=== PATIENT | male | born 1995 | race Caucasian/White ===

== ENCOUNTER 2018-02-23 19:36 | Emergency (ER) | payer OTHER ==
[~2018-02-23] VITALS: Ht 172.7 cm; Wt 54.4 kg
[2018-02-23] MEDS ORDERED: NAPROXEN500 MG PO (19:50)
[2018-02-23] MEDS ORDERED: ZANAFLEX2 M1 PO (20:26)
[2018-02-23] MEDS ORDERED: PREDNISONE10 MG PO (20:26)
[2018-02-23] MEDS ORDERED: GABAPENTIN100 MG PO (20:26)
[2018-02-23] MEDS ORDERED: INDOMETHACIN50 MG PO (20:26)
== END 2018-02-23 21:15 | disposition left against medical advice (07) ==
LOC: ED 19:36
DX: M54.16 Radiculopathy, lumbar region (principal); B35.3 Tinea pedis; L98.9 Disorder of the skin and subcutaneous tissue, unspecified; F32.9 Major depressive disorder, single episode, unspecified; F17.200 Nicotine dependence, unspecified, uncomplicated; Z79.899 Other long term (current) drug therapy
CPT/HCPCS: 96372; 99283; J1630; J1885; J7512

== ENCOUNTER 2019-04-04 11:05 | Emergency (ER) | payer OTHER ==
[~2019-04-04] VITALS: Ht 172.7 cm; Wt 55.9 kg
--- OUTSIDE RECORDS SUMMARY | ~2019-04-04 | XMS | Clinical Summary ---
Demographics + + + | Address | [address] | | | [place] [address] | + + + | Home Phone | | + + + | Preferred Language | Unknown | + + + | Marital Status | Single | + + + | Anabaptist Affiliation | Unknown | + + + | Race | Unknown | + + + | Ethnic Group | Unknown | + + + Author + + + | Author | [facility] | | | and [place] | + + + | Organization | [facility] | | | and [place] | + + + | Address | Unknown | + + + | Phone | Unavailable | + + + Support + + +---------+ + | Name | Relationship | Address | Phone | + + +---------+ + | Eriberto Mcfadden | ECON | Unknown | | + + +---------+ + Care Team Providers + +------+ + | Care Endoscopy Rn Name | Role | Phone | + +------+ + | Marky Huertas MD | PP | | + +------+ + Allergies No Known Allergies Medications + + + +---------+------+------+-------+ | Medication | Sig | Dispensed | Refills | Star | End | Statu | | | | | | t | Date | s | | | | | | Date | | | + + + +---------+------+------+-------+ | gabapentin | 1 tab PO nightly x 5 | 60 | 2 | 06/2 | | Activ | | (NEURONTIN) 300 mg | days, then increase | capsule | | 8/20 | | e | | capsule | to 1 tab PO BID x 5 | | | 18 | | | | | days. If continue | | | | | | | | to tolerate well, | | | | | | | | increase to 1 tab PO | | | | | | | | TID. | | | | | | + + + +---------+------+------+-------+ | meloxicam (MOBIC) | Take 1 tablet by | 30 | 2 | 05/25 | | Activ | | 15 mg tablet | mouth Daily as | tablet | | 7/20 | | e | | | needed for Pain. | | | 18 | | | + + + +---------+------+------+-------+ Active Problems + + + | Problem | Noted Date | + + + | Lumbar radiculopathy | 05/22/2018 | + + + | DDD (degenerative disc disease), lumbar | 05/22/2018 | + + + Family History + + + + + | Medical History | Relation | Name | Comments | + + + + + | No known problems | Mother | ERIBERTO | | | | | SUMMREFI | | | | | ELD | | + + + + + + + +--------+ + | Relation | Name | Status | Comments | + + +--------+ + | Mother | ERIBERTO | Alive | | | | SUMMREFIE | | | | | LD | | | + + +--------+ + Social History + +-------+ +--------+------+ | Tobacco Use | Types | Packs/Day | Years | Date | | | | | Used | | + +-------+ +--------+------+ | Never Smoker | | | | | + +-------+ +--------+------+ + +---+---+---+ | Smokeless Tobacco: | | | | | Never Used | | | | + +---+---+---+ + + +---------+ + | Alcohol Use | Drinks/We | oz/Week | Comments | | | ek | | | + + +---------+ + | Yes | | | | + + +---------+ + + + + | Sex Assigned at | Date Recorded | | | | + + + | Not on file | | + + + + + + + | Job Start Date | Occupation | Industry | + + + + | Not on file | Not on file | Not on file | + + + + + + + + | Travel History | Travel Start | Travel End | + + + + + + | No recent travel history available. | + + Last Filed Vital Signs + + + + | Vital Sign | Reading | Time Taken | + + + + | Blood Pressure | 111/63 | 08/04/2018942 PDT | + + + + | Pulse | 84 | 08/04/2018942 PDT | + + + + | Temperature | - | - | + + + + | Respiratory Rate | - | - | + + + + | Oxygen Saturation | - | - | + + + + | Inhaled Oxygen | - | - | | Concentration | | | + + + + | Weight | 49.9 kg (110 lb) | 08/04/2018942 PDT | + + + + | Height | 162.6 cm (5' 4") | 08/04/2018942 PDT | + + + + | Body Mass Index | 18.88 | 08/04/2018942 PDT | + + + + Plan of Treatment + + + + + | Health Maintenance | Due Date | Last Done | Comments | + + + + + | Vaccine: | | | | | Dtap/Tdap/Td (1 - | 4 | | | | Tdap) | | | | + + + + + | Vaccine: Influenza | | | | | (Season Ended) | 9 | | | + + + + + Results Not on filefrom Last 3 Months Insurance +-------+--------+ +--------+ + +------+ | Payer | Benefi | Subscriber | Effect | Phone | Address | Type | | | t Plan | ID | ayan | | | | | | / | | Dates | | | | | | Group | | | | | | +-------+--------+ +--------+ + +------+ | MOD[employer] | MODA | [id number] | | [phone] | [address] | PPO | | | FIRST | | [phone] [id number] | | | | CHOICE | | esent | | [place], | | | | | | | | [place] [address] | | +-------+--------+ +--------+ + +------+ + +--------+ +--------+ + + | Guarantor Name | Accoun | Relation to | Date | Phone | Billing Address | | | t Type | Patient | of | | | | | | | | | | + +--------+ +--------+ + + | Jens Mcfadden | Person | 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 For more information, please contact:[facility] [place] [address]
--- OUTSIDE RECORDS SUMMARY | ~2019-04-04 | XMS | Clinical Summary ---
Demographics + + + | Address | [address] | | | [place] [address] | + + + | Home Phone | | + + + | Preferred Language | Unknown | + + + | Marital Status | Single | + + + | Islam Affiliation | Unknown | + + + | Race | Unknown | + + + | Ethnic Group | Unknown | + + + Author + + + | Author | [facility] | | | and [place] | + + + | Organization | [facility] | | | and [place] | [...] Team Providers + +------+ + | Care Lance Crewmember Name | Role | Phone | + [...] + +------+ | MOD[employer] | MODA | [id number] | | [phone] | [address] | PPO | | | FIRST | | [phone] | [id number] | | | | CHOICE | | esent | | [place], | | | | | | | | [place] [phone] | | +-------+--------+ +--------+ + +------+ + [...] | 1994 | [phone] | [place] [address] | | | eufemia | | | 3 (Home) | | + +--------+ +--------+ + + Advance Directives Patient has advance care planning documents on file. For more information, please contact:[facility] [place] [address]
[~2019-04-04 11:05] MED LIST: GABAPENTIN100 MG PO; INDOMETHACIN50 MG PO; NAPROXEN500 MG PO; PREDNISONE10 MG PO; ZANAFLEX2 M1 PO
--- OUTSIDE RECORDS SUMMARY | 2019-04-04 11:06 | XMS ---
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 02/23/2018 19:36 - Patient eloped before treatment completed. Details: AMA CRITERIA MET - Group Notification CARE PROVIDERS DR RAEGAN GARCIA Primary Care Current PHONE: [phone] Sarah has no Care Guidelines for this patient. E.D. VISIT COUNT (12 MO.) [address] [place] [address] TOTAL 1 NOTE: Visits indicate total known visits. ED/UCC VISIT TRACKING (12 MO.) 04/04/2019 11:05 [facility] [place] TYPE: Emergency COMPLAINT: - EAR PAIN INPATIENT VISIT TRACKING (12 MO.) No inpatient visits to display in this time frame [email or web address]
== END 2019-04-04 11:26 | disposition home or self-care (01) ==
LOC: ED 11:05
DX: H92.01 Otalgia, right ear (principal)